=== PATIENT | female | born 1960 | race Asian ===

== ENCOUNTER → 2017-05-14 | Outpatient (CLI) | payer OTHER ==
[~2017-05-14] MED LIST: AMLO5TAB2 PO; CHOL100018 PO; FENO145T13 PO; LEVO75TA PO; METF10002 PO; OMEG1CAP28 PO; UBID100C11 PO
== END | disposition home or self-care (01) ==
LOC: CFH 14:38
DX: Z12.31 Encounter for screening mammogram for malignant neoplasm of breast (principal)
CPT/HCPCS: G0202

== ENCOUNTER → 2018-06-12 | Outpatient (CLI) | payer OTHER ==
[~2018-06-12] MED LIST changes: +CHOL100012 PO; -CHOL100018 PO; -FENO145T13 PO; +FENO145T30 PO; -UBID100C11 PO; +UBID100C41 PO
== END | disposition home or self-care (01) ==
LOC: CFH 07:51
DX: Z12.31 Encounter for screening mammogram for malignant neoplasm of breast (principal); E78.00 Pure hypercholesterolemia, unspecified; I25.10 Atherosclerotic heart disease of native coronary artery without angina pectoris
CPT/HCPCS: 75571; 77067